=== PATIENT | female | born 1995 | race Two or more races ===

== ENCOUNTER 2016-12-16 20:51 | Emergency (ER) | payer OTHER ==
[2016-12-16 20:59] VITALS: RESP 16; TEMP 97.9
--- NOTE | 2016-12-16 22:00 | EDPHY ---
H & P Stated Complaint: pt c/o itchy rash on face x 5 days, area on face worse/more painful x 2 day HPI/ROS: HPI CHIEF COMPLAINT: Right-sided facial cellulitis HISTORY OF PRESENT ILLNESS: This patient very pleasant 21-year-old female no significant medical history she presents emergency room with a lesion on the right side of her face right cheek nasal bridge, this tender red and swollen. She did see her forensics team director today. Was told to hold off on antibiotics. She can emergency room this evening because it got worse more painful. No fever. No other lesions. Skin lesion appears to be there for 48 hours. Past Medical History: No significant medical history Past Surgical History: Significant surgical history Social History: denies daily use of drugs alcohol tobacco products, [employer] [facility] [place], [place] student Family History: contributory ROS REVIEW OF SYSTEMS: A comprehensive 10 point review of systems is otherwise negative aside from elements mentioned in the history of present illness. Exam Constitutional triage nursing summary reviewed, vital signs reviewed, awake/ alert. Eyes normal conjunctivae and sclera, EOMI, PERRLA. HENT right face: nasal bridge with maxillary fold area of cellulitis 2 x 3 cm , no significant induration no fluctuance, no abscess, normal inspection, atraumatic, moist mucus membranes, no epistaxis, neck supple/ no meningismus, no raccoon eyes. Respiratory clear to auscultation bilaterally, normal breath sounds, no respiratory distress, no wheezing. Cardiovascular rate normal, regular rhythm, no murmur, no edema, distal pulses normal. Gastrointestinal soft, non-tender, no rebound, no guarding, normal bowel sounds, no distension, no pulsatile mass. Genitourinary no CVA tenderness. Musculoskeletal no midline vertebral tenderness, full range of motion, no calf swelling, no tenderness of extremities, no meningismus, good pulses, neurovascularly intact. Skin pink, warm, & dry, no rash, skin atraumatic. Neurologic awake, alert and oriented x 3, AAOx3, moves all 4 extremities equally, motor intact, sensory intact, CN II-XII intact, normal cerebellar, normal vision, normal speech. Psychiatric normal mood/affect. Heme/Lymph/Immune no lymphadenopathy. Differential Diagnosis: Includes but is not limited to in a particular order, facial cellulitis, MRSA, strep, staph, impetigo Medical Decision Making: plan for this patient Keflex p.o., warm compresses 3 to 4 times a day, Bactroban cream. Follow up with her primary care doctor return emergency room if worsening symptoms. Source: Patient - Personal History Tetanus Vaccine Date: < 10 years - Medical/Surgical History Hx Asthma: No Hx Chronic Respiratory Disease: No Hx Diabetes: No Hx Cardiac Disease: No Hx Renal Disease: No Hx Cirrhosis: No Hx Alcoholism: No Hx HIV/AIDS: No Hx Splenectomy or Spleen Trauma: No Other PMH: none - Social History Smoking Status: Never smoked Constitutional: Initial Vital Signs Temperature (C) 36.6 C 12/16/16 20:55 Heart Rate 87 12/16/16 20:55 Respiratory Rate 16 12/16/16 20:55 Blood Pressure 121/69 H 12/16/16 20:55 O2 Sat (%) 94 12/16/16 20:55 O2 Delivery Mode Room Air Allergies/Adverse Reactions: No Known Allergies Allergy (Verified 12/16/16 20:59) Home Medications: Medication Instructions Recorded Cephalexin [Keflex (*)] 500 mg PO Q6H #28 cap 12/16/16 Mupirocin 2% [Bactroban 2%] 30 gm TP BID #1 oint 12/16/16 Departure - Departure Disposition: Home, Routine, Self-Care Clinical Impression: Facial cellulitis Condition: Good Instructions: Cellulitis (ED) Additional Instructions: 1. Use warm compresses to her face 3-4 times per day. 2. Take your antibiotics as prescribed.. 3. Return emergency room if any worsening symptoms questions or concerns. Referrals: NONE *PRIMARY CARE P,. [Primary Care Provider] - As per Instructions Prescriptions: Cephalexin [Keflex (*)] 500 mg PO Q6H #28 cap Mupirocin 2% [Bactroban 2%] 30 gm TP BID #1 oint
[2016-12-16] MEDS ORDERED: CEPHALEXIN 500MG PREPACK#4 BTL TAKEHOME ONE (22:02)
[2016-12-16] MEDS ORDERED: CEPHALEXIN 500 MG CAP PO ONE (22:02)
[2016-12-16 22:15] VITALS: BP 120/63; PULSE 74; O2SAT 97
== END 2016-12-16 22:15 | disposition home or self-care (01) ==
DX: L03.211 Cellulitis of face (principal)

== ENCOUNTER 2016-12-27 22:37 | Emergency (ER) | payer OTHER ==
[2016-12-27 22:43] VITALS: BP 107/73; PULSE 112; RESP 16; TEMP 98.4; O2SAT 94
--- NOTE | 2016-12-27 23:15 | EDPHY ---
H & P Smoking Status: Never smoked Time Seen by Provider: 12/27/16 22:43 HPI/ROS: CHIEF COMPLAINT: Rash HISTORY OF PRESENT ILLNESS: 21-year-old female presents to the emergency department with red raised rash that she noticed to the just today. The patient had a right facial infection and saw a renal dietitian who started her on Bactrim. She has been taking this as prescribed today is the 9th day. Patient developed red raised rash is concerned about possible infection. No pain. Very little itching. No other known contact with anything. ROS: No chest pain or difficulty breathing. No abdominal pain. No fevers or chills. (Brooklyn Feliz) Past Medical/Surgical History: Facial infection recently treated with antibiotics (Brooklyn Feliz) Social History: [employer] student (Brooklyn Feliz) Physical Exam: On examination the patient has diffuse erythematous macular papular rash specially to the right upper extremity, legs and abdomen. No vesicles. It does dagoberto to the touch. Lungs are clear to auscultation with no wheezing, rhonchi or rales. Heart regular rate rhythm without murmur. (Brooklyn Feliz) Constitutional: Initial Vital Signs Temperature (C) 36.9 C 12/27/16 22:40 Heart Rate 112 H 12/27/16 22:40 Respiratory Rate 16 12/27/16 22:40 Blood Pressure 107/73 12/27/16 22:40 O2 Sat (%) 94 12/27/16 22:40 O2 Delivery Mode Room Air Allergies/Adverse Reactions: No Known Allergies Allergy (Verified 12/16/16 20:59) Home Medications: Medication Instructions Recorded Sulfamethoxazole/Trimethoprim 12/27/16 MDM/Departure - [facility] ED Course/Re-evaluation: 21-year-old female presents with erythematous red raised rash. The patient has been taking Bactrim for the last 9 days. I did explain to the patient that this medication is likely what is causing her rash. I also talked with the patient about possible Bactrim causing photosensitivity. I encouraged her to stop taking the Bactrim since she is almost done with this medication any way. I do not see any indication for further antibiotics. I encouraged close follow- up with renal dietitian as well as primary care provider. She was given referral. (Brooklyn Feliz) PHYSICIAN DOCUMENTATION: The patient was evaluated and managed by the Physician Metal Spray Operator. My co- signature indicates that I have reviewed this chart and I agree with the findings and plan of care as documented. I am the secondary supervising physician. (Bina Samuel) Differential Diagnosis: Including but not limited to medication reaction, anaphylaxis, allergic reaction , cellulitis (Brooklyn Feliz) - Depart Disposition: Home, Routine, Self-Care Clinical Impression: Rash, Probable medication reaction Condition: Good Instructions: Acute Rash (ED), Antibiotic Medication Allergy (ED) Additional Instructions: Stop antibiotic (SMZ/TMP). You may use Benadryl as directed for itching, caution drowsiness. Referrals: Jhonatan Zamora MD [[facility] Primary Care Provider] - 2-3 days, call for appt. ( Primary care provider consumer science teacher)
== END 2016-12-27 23:28 | disposition home or self-care (01) ==
DX: R21 Rash and other nonspecific skin eruption (principal)

== ENCOUNTER 2016-12-28 14:20 | Emergency (ER) | payer OTHER ==
[2016-12-28 14:35] VITALS: BP 121/88; PULSE 101; RESP 16; TEMP 98.1; O2SAT 95
--- NOTE | 2016-12-28 14:41 | EDPHY ---
H & P Stated Complaint: generlized body rash(?bactrim)since yesterday--seen here for same 12/27 Time Seen by Provider: 12/28/16 14:41 - Personal History LMP (Females 10-55): 22-28 Days Ago Current Tetanus/Diphtheria Vaccine: Unsure Current Tetanus Diphtheria and Acellular Pertussis (TDAP): Unsure Tetanus Vaccine Date: < 10 years - Medical/Surgical History Hx Asthma: No Hx Chronic Respiratory Disease: No Hx Diabetes: No Hx Cardiac Disease: No Hx Renal Disease: No Hx Cirrhosis: No Hx Alcoholism: No Hx HIV/AIDS: No Hx Splenectomy or Spleen Trauma: No Other PMH: PSHx: denies. PMHx: denies - Social History Smoking Status: Never smoked Constitutional: Initial Vital Signs Temperature (C) 36.7 C 12/28/16 14:32 Heart Rate 101 H 12/28/16 14:32 Respiratory Rate 16 12/28/16 14:32 Blood Pressure 121/88 H 12/28/16 14:32 O2 Sat (%) 95 12/28/16 14:32 O2 Delivery Mode Room Air Allergies/Adverse Reactions: No Known Allergies Allergy (Verified 12/16/16 20:59) Home Medications: Medication Instructions Recorded Sulfamethoxazole/Trimethoprim 12/27/16 Famotidine [Pepcid 20 MG (OTC)] 20 mg PO DAILY #10 tab 12/28/16 predniSONE 40 mg PO DAILY #10 tab 12/28/16 Medical Decision Making ED Course/Re-evaluation: CHIEF COMPLAINT: Pruritic rash. HISTORY OF PRESENT ILLNESS: The patient is a 21-year-old female who presents with generalized pruritic rash that began after she started taking Bactrim. She has been taking Benadryl to treat the rash. She denies difficulty breathing, throat swelling, shortness of breath, or other complaints. REVIEW OF SYSTEMS: A 10 point review of systems was performed and is negative with the exception of the elements mentioned in the history of present illness. PHYSICAL EXAM: HR, BP, O2 Sat, RR. Temp noted General Appearance: Alert, well hydrated, appropriate, and non-toxic appearing. Head: Atraumatic without scalp tenderness or obvious injury Eyes: Pupils equal, round, reactive to light and accommodation, EOMI, no trauma , no injection. Ears: Clear bilaterally, no perforation, normal landmarks Nose: Atraumatic, no rhinorrhea, clear. Throat: There is no erythema or exudates, no lesions, normal tonsils, mucus membranes moist. Neck: Supple, 2+ carotid upstroke, nontender, no lymphadenopathy. Respiratory: No retractions, no distress, no wheezes, and no accessory muscle use. Lungs are clear to auscultation bilaterally. Cardiovascular: Regular rate and rhythm, no murmurs, rubs, or gallops. Bilateral carotid, radial, dorsalis pedis, and posterior tibial pulses intact. Good capillary refill all extremities. Gastrointestinal: Abdomen is soft, nontender, non-distended, no masses, no rebound, no guarding, no peritoneal signs. Musculoskeletal: Normal active ROM of all extremities, atraumatic. Neurological: Alert, appropriate, and interactive. The patient has normal DTRs and non-focal cranial nerves, motor, sensory, and cerebellar exam. Skin: Good turgor, no nodules on palpation. Generalized rash. Past medical history: Denies. Past surgical history: Denies. Family history: N/A. Social history: [employer] Student. DIFFERENTIAL DIAGNOSIS: The differential diagnosis included but was not limited to angioedema, anaphylaxis, anaphylactoid reaction, urticarial reaction, and other infectious causes for skin rash. MEDICAL DECISION MAKIN-year-old female presents with generalized pruritic rash that began after she started taking Bactrim. On exam she has no angioedema and no other allergic reaction complications. It is clear she is allergic to Sulfa products. I have instructed her to discontinue use of these. 40mg PO Pepcid and 60mg PO Prednisone administered. She will be provided prescriptions for both of these. She is comfortable with this plan. Departure - Departure Disposition: Home, Routine, Self-Care Clinical Impression: Allergy to sulfa drugs Allergic reaction Qualifiers: Encounter type: initial encounter Qualified Code(s): T78.40XA - Allergy, unspecified, initial encounter Condition: Good Instructions: Antibiotic Medication Allergy (ED), General Allergic Reaction (ED ) Additional Instructions: You are allergic to Sulfa products. Do not take Bactrim or any other Sulfa medications. Take Pepcid and Prednisone as prescribed. Return for any serious worsening of condition. Referrals: JULIETTE Dickinson,. [Clinic] - As per Instructions Prescriptions: Famotidine [Pepcid 20 MG (OTC)] 20 mg PO DAILY #10 tab predniSONE 40 mg PO DAILY #10 tab Report Scribed for: Ignacio Gupta Report Scribed by: Jung Tai Date of Report: 12/28/16 Time of Report: 14:47
[2016-12-28] MEDS ORDERED: predniSONE 20 MG TAB PO ONE (14:46)
[2016-12-28] MEDS ORDERED: FAMOTIDINE 20 MG TAB PO ONE (14:46)
== END 2016-12-28 15:01 | disposition home or self-care (01) ==
DX: R21 Rash and other nonspecific skin eruption (principal); T37.0X5A Adverse effect of sulfonamides, initial encounter

== ENCOUNTER 2017-06-12 16:11 | Emergency (ER) | payer OTHER ==
--- NOTE | 2017-06-12 17:14 | EDPHY ---
General Narrative: CHIEF COMPLAINT: Here for laboratory test due to Accutane use HISTORY OF PRESENT ILLNESS: Patient presents with request for laboratory studies due to Accutane use. She has been using Accutane for approximately 1 month. This was prescribed back in [facility]. She has now traveled here to be a student at [employer]. the physician in [facility] is requesting a CBC, serum creatinine, lipid profile, liver function panel. The patient has no complaints of any kind and simply wants these laboratory test performed. She says that her physician incomplete will follow up on the laboratory test and a abnormalities that should arise. She does not want any medical care otherwise. No other associated complaints or modifying factors. REVIEW OF SYSTEMS: Ten systems reviewed and are negative unless otherwise noted in the HPI PCP: In [facility] SPECIALISTS: None PAST MEDICAL HISTORY: Acne PAST SURGICAL HISTORY: None SOCIAL HISTORY: Nonsmoker. No alcohol. Currently a student at [employer] FAMILY HISTORY: Noncontributory EXAMINATION General Appearance: Alert, no distress Head: normocephalic, atraumatic Eyes: Pupils equal and round, no conjunctival pallor or injection ENT, Mouth: Mucous membranes moist. Airway patent Neck: Normal inspection, supple, non-tender Respiratory: No retractions or distress Cardiovascular: Regular. Neurological: A&O, nonfocal, normal gait Skin: Warm and dry, no rash. Mild facial acne MDM: 4:45 p.m. Patient is here taking Accutane and requesting laboratory studies that her physician back in [facility] would like. They are requesting CBC, chemistry, lipid panel liver function test. She has no complaints of any kind otherwise. She would like to check these for further continuation of her medication. Her physician incomplete will manage these laboratory test results and her Accutane. Laboratory studies have been ordered and we will provide the results were. - History Smoking Status: Never smoked - Objective Vital Signs: Initial Vital Signs Temperature (C) 97.3 F 06/12/17 16:26 Heart Rate 79 06/12/17 16:26 Respiratory Rate 18 06/12/17 16:26 Blood Pressure 122/74 H 06/12/17 16:26 O2 Sat (%) 95 06/12/17 16:26 O2 Delivery Mode Room Air Allergies/Adverse Reactions: sulfamethoxazole [From Bactrim] Allergy (Verified 06/12/17 16:25) trimethoprim [From Bactrim] Allergy (Verified 06/12/17 16:25) Home Medications: Medication Instructions Recorded ACCUTANE 06/12/17 Crestor 06/12/17 Crestor 06/12/17 Departure - Departure Disposition: Home, Routine, Self-Care Clinical Impression: Encounter for laboratory test Condition: Good Additional Instructions: 1. follow up on the laboratory results with your primary care physician Referrals: NONE *PRIMARY CARE P,. [Primary Care Provider] - As per Instructions [facility]UI[facility]TT[facility]ARCIA [facility],. [Clinic] - As per Instructions Santos Myrick MD [Medical Doctor] - As per Instructions
[2017-06-12 17:30] LABS: ALANINE AMINOTRANSFERASE 56 IU/L (9-52); ALBUMIN 4.5 g/dL (3.5-5.0); ALKALINE PHOSPHATASE 66 IU/L (38-126); ANION GAP 12 mEq/L (8-16); ASPARTATE AMINOTRANSFERASE 51 IU/L (14-46); BILIRUBIN,TOTAL 0.8 mg/dL (0.1-1.4); BILIRUBIN-CONJUGATED 0.4 mg/dL (0.0-0.5); BILIRUBIN-UNCONJUGATED 0.4 mg/dL (0.0-1.1); CALCIUM 9.6 mg/dL (8.5-10.4); CARBON DIOXIDE 23 mEq/l (22-31); CHLORIDE 101 mEq/L (97-110); CHOLESTEROL 138 mg/dL (140-200); CREATININE 0.8 mg/dL (0.6-1.0); GLOMERULAR FILTRATION RATE > 60; GLUCOSE 95 mg/dL (70-100); HIGH DENSITY LIPOPROTEIN 60 mg/dL (40-75); LDL/HDL RATIO 1.02 RATIO (1.00-3.22); LOW DENSITY LIPOPROTEIN 61 mg/dL (60-100); NON-HIGH DENSITY LIPOPROTEIN 78 mg/dL (90-129); POTASSIUM 3.6 mEq/L (3.5-5.2); SODIUM 136 mEq/L (134-144); TOTAL PROTEIN 7.8 g/dL (6.3-8.2); TRIGLYCERIDE 87 mg/dL (35-135); VERY LOW DENSITY LIPOPROTEINS 17 mg/dL (8-25)
[2017-06-12 17:34] LABS: % IMMATURE GRANULYOCYTES 0.6 % (0.0-1.1); ABSOLUTE IMMATURE GRANULOCYTES 0.07 10^3/uL (0.00-0.10); ADD DIFF? NO; ADD MORPH? NO; ADD SCAN? NO; ATYPICAL LYMPHOCYTE FLAG 0 (0-99); FRAGMENT RBC FLAG 0 (0-99); HEMATOCRIT 42.7 % (38.0-47.0); HEMOGLOBIN 14.8 g/dL (12.6-16.3); LEFT SHIFT FLG 0 (0-99); LIPEMIA HEMOLYSIS FLAG 90 (0-99); MEAN CELL HEMOGLOBIN 30.1 pg (27.9-34.1); MEAN CELL HEMOGLOBIN CONCENTR. 34.7 g/dL (32.4-36.7); MEAN PLATELET VOLUME 9.9 fL (8.7-11.7); PLATELET CLUMPS FLAG 0 (0-99); PLATELET COUNT 209 10^3/uL (150-400); RED BLOOD CELL COUNT 4.91 10^6/uL (4.18-5.33); RED CELL DISTRIBUTION WIDTH 12.5 % (11.5-15.2)
[2017-06-12 17:42] VITALS: BP 121/78; PULSE 67; RESP 16; TEMP 98.4; O2SAT 97
== END 2017-06-12 17:43 | disposition home or self-care (01) ==
DX: Z00.00 Encounter for general adult medical examination without abnormal findings (principal)

== ENCOUNTER 2017-07-02 14:22 | Emergency (ER) | payer OTHER ==
[2017-07-02 14:28] VITALS: TEMP 98.4
--- NOTE | 2017-07-02 15:13 | EDPHY ---
H & P Stated Complaint: PT ON ACUTANE/LIVER LABS ELEVATED 10 DAYS AGO/NEEDS RECHECKED/ IS IN [facility] Time Seen by Provider: 07/02/17 15:02 - Personal History LMP (Females 10-55): 8-14 Days Ago Current Tetanus/Diphtheria Vaccine: Yes Tetanus Vaccine Date: < 10 years - Medical/Surgical History Hx Asthma: No Hx Chronic Respiratory Disease: No Hx Diabetes: No Hx Cardiac Disease: No Hx Renal Disease: No Hx Cirrhosis: No Hx Alcoholism: No Hx HIV/AIDS: No Hx Splenectomy or Spleen Trauma: No Other PMH: PSHx: denies. PMHx: denies - Social History Smoking Status: Never smoked Constitutional: Initial Vital Signs Temperature (C) 36.9 C 07/02/17 14:26 Heart Rate 83 07/02/17 14:26 Respiratory Rate 18 07/02/17 14:26 Blood Pressure 112/76 07/02/17 14:26 O2 Sat (%) 94 07/02/17 14:26 O2 Delivery Mode Room Air Allergies/Adverse Reactions: sulfamethoxazole [From Bactrim] Allergy (Verified 07/02/17 14:25) trimethoprim [From Bactrim] Allergy (Verified 07/02/17 14:25) Home Medications: Medication Instructions Recorded ACCUTANE 06/12/17 Crestor 06/12/17 Crestor 06/12/17 Medical Decision Making ED Course/Re-evaluation: CHIEF COMPLAINT: Elevated liver enzymes HISTORY OF PRESENT ILLNESS: 21-year-old healthy female from [facility]. She was taking both Crestor and Accutane. About 2 weeks ago before leaving to wait she had elevated liver enzymes. She does not have those labs with her. Her doctor said she stopped taking both meds and have her liver enzymes rechecked. She is here for that today. She has no complaints whatsoever. She had no issues with bleeding she has had no abdominal pain she has had no nausea vomiting no fevers or chills and she has felt fine. REVIEW OF SYSTEMS: A 10 point review of systems was performed and is negative with the exception of the elements mentioned in the history of present illness. PHYSICAL EXAM: HR, BP, O2 Sat, RR. Temp noted General Appearance: Alert, well hydrated, appropriate, and non-toxic appearing. Head: Atraumatic without scalp tenderness or obvious injury Respiratory: No retractions, no distress, no wheezes, and no accessory muscle use. Lungs are clear to auscultation bilaterally. Cardiovascular: Regular rate and rhythm, no murmurs, rubs, or gallops. Bilateral carotid, radial, dorsalis pedis, and posterior tibial pulses intact. Good capillary refill all extremities. Gastrointestinal: Abdomen is soft, nontender, non-distended, no masses, no rebound, no guarding, no peritoneal signs. Musculoskeletal: Normal active ROM of all extremities, atraumatic. Neurological: Alert, appropriate, and interactive. The patient has normal DTRs and non-focal cranial nerves, motor, sensory, and cerebellar exam. Skin: No rashes, good turgor, no nodules on palpation. Past medical history: Borderline hypercholesterolemia and acne Past surgical history: Noncontributory Family history: Noncontributory Social history: Single, student, does not abuse tobacco drugs or alcohol DIFFERENTIAL DIAGNOSIS: For elevated liver enzymes includes but is not limited to: Statin drug, Accutane, other ingested drugs or foods, illness MEDICAL DECISION MAKING: This patient has no symptoms whatsoever CBC, a chemistry panel with liver function tests and total CPK are all pending. This patient does have a slightly elevated white blood cell count but she does not really have any symptoms whatsoever. Other than that, she has normal liver and kidney function normal electrolytes. She will follow up with instructions from her doctor. At this point Accutane probably does not make sense. I do not have a good sense of how bad a lipid disorders patient has so she can discuss additional lipid control modalities with her primary care physician. - Data Points Laboratory Results: Laboratory Results 07/02/17 15:10 07/02/17 15:10 07/02/17 07/02/17 07/02/17 15:10 15:10 15:10 WBC 14.88 10^3/uL H 10^3/uL (3.80-9.50) RBC 5.12 10^6/uL 10^6/uL (4.18-5.33) Hgb 15.4 g/dL g/dL (12.6-16.3) Hct 44.5 % % (38.0-47.0) MCV 86.9 fL fL (81.5-99.8) MCH 30.1 pg pg (27.9-34.1) MCHC 34.6 g/dL g/dL (32.4-36.7) RDW 12.5 % % (11.5-15.2) Plt Count 265 10^3/uL 10^3/uL (150-400) MPV 9.6 fL fL (8.7-11.7) Neut % (Auto) 70.6 % % (39.3-74.2) Lymph % (Auto) 17.7 % % (15.0-45.0) Oliver % (Auto) 8.1 % % (4.5-13.0) Eos % (Auto) 2.3 % % (0.6-7.6) Baso % (Auto) 0.7 % % (0.3-1.7) Nucleat RBC Rel Count 0.0 % % (0.0-0.2) Absolute Neuts (auto) 10.51 10^3/uL H 10^3/uL (1.70-6.50) Absolute Lymphs (auto) 2.64 10^3/uL 10^3/uL (1.00-3.00) Absolute Monos (auto) 1.20 10^3/uL H 10^3/uL (0.30-0.80) Absolute Eos (auto) 0.34 10^3/uL 10^3/uL (0.03-0.40) Absolute Basos (auto) 0.10 10^3/uL 10^3/uL (0.02-0.10) Absolute Nucleated RBC 0.00 10^3/uL 10^3/uL (0-0.01) Immature Gran % 0.6 % % (0.0-1.1) Immature Gran # 0.09 10^3/uL 10^3/uL (0.00-0.10) PT 14.0 SEC SEC (12.0-15.0) INR 1.09 (0.83-1.16) APTT 30.0 SEC SEC (23.0-38.0) Sodium 139 mEq/L mEq/L (134-144) Potassium 4.2 mEq/L mEq/L (3.5-5.2) Chloride 104 mEq/L mEq/L (97-110) Carbon Dioxide 22 mEq/l mEq/l (22-31) Anion Gap 13 mEq/L mEq/L (8-16) BUN 14 mg/dL mg/dL (7-23) Creatinine 0.7 mg/dL mg/dL (0.6-1.0) Estimated GFR > 60 Glucose 90 mg/dL mg/dL (70-100) Calcium 9.5 mg/dL mg/dL (8.5-10.4) Total Bilirubin 0.8 mg/dL mg/dL (0.1-1.4) Conjugated Bilirubin 0.2 mg/dL mg/dL (0.0-0.5) Unconjugated Bilirubin 0.6 mg/dL mg/dL (0.0-1.1) AST 23 IU/L IU/L (14-46) ALT 29 IU/L IU/L (9-52) Alkaline Phosphatase 70 IU/L IU/L (38-126) Creatine Kinase 88 IU/L IU/L (0-156) Total Protein 7.3 g/dL g/dL (6.3-8.2) Albumin 4.3 g/dL g/dL (3.5-5.0) Lipase 28 IU/L IU/L (23-300) Departure - Departure Disposition: Home, Routine, Self-Care Clinical Impression: Elevated liver enzymes Condition: Good Instructions: Heart Healthy Diet (ED) Referrals: NONE *PRIMARY CARE P,. [Primary Care Provider] - As per Instructions
[2017-07-02 15:24] LABS: % IMMATURE GRANULYOCYTES 0.6 % (0.0-1.1); ABSOLUTE IMMATURE GRANULOCYTES 0.09 10^3/uL (0.00-0.10); ADD DIFF? NO; ADD MORPH? NO; ADD SCAN? NO; ATYPICAL LYMPHOCYTE FLAG 0 (0-99); FRAGMENT RBC FLAG 0 (0-99); HEMATOCRIT 44.5 % (38.0-47.0); HEMOGLOBIN 15.4 g/dL (12.6-16.3); LEFT SHIFT FLG 0 (0-99); LIPEMIA HEMOLYSIS FLAG 90 (0-99); MEAN CELL HEMOGLOBIN 30.1 pg (27.9-34.1); MEAN CELL HEMOGLOBIN CONCENTR. 34.6 g/dL (32.4-36.7); MEAN CELL VOLUME 86.9 fL (81.5-99.8); MEAN PLATELET VOLUME 9.6 fL (8.7-11.7); PLATELET CLUMPS FLAG 0 (0-99); PLATELET COUNT 265 10^3/uL (150-400); RED BLOOD CELL COUNT 5.12 10^6/uL (4.18-5.33); RED CELL DISTRIBUTION WIDTH 12.5 % (11.5-15.2)
[2017-07-02 15:37] LABS: ALANINE AMINOTRANSFERASE 29 IU/L (9-52); ALBUMIN 4.3 g/dL (3.5-5.0); ALKALINE PHOSPHATASE 70 IU/L (38-126); ANION GAP 13 mEq/L (8-16); ASPARTATE AMINOTRANSFERASE 23 IU/L (14-46); BILIRUBIN,TOTAL 0.8 mg/dL (0.1-1.4); BILIRUBIN-CONJUGATED 0.2 mg/dL (0.0-0.5); BILIRUBIN-UNCONJUGATED 0.6 mg/dL (0.0-1.1); CALCIUM 9.5 mg/dL (8.5-10.4); CARBON DIOXIDE 22 mEq/l (22-31); CHLORIDE 104 mEq/L (97-110); CREATININE 0.7 mg/dL (0.6-1.0); GLOMERULAR FILTRATION RATE > 60; GLUCOSE 90 mg/dL (70-100); POTASSIUM 4.2 mEq/L (3.5-5.2); SODIUM 139 mEq/L (134-144); TOTAL PROTEIN 7.3 g/dL (6.3-8.2)
[2017-07-02 15:40] LABS: INR 1.09 (0.83-1.16)
[2017-07-02 15:59] VITALS: BP 104/55; PULSE 85; RESP 16; O2SAT 95
[2017-07-02 16:14] LABS: CHOLESTEROL 183 mg/dL (140-200); CHOLESTEROL/HDL RATIO 2.95 RATIO (1.00-4.44); HIGH DENSITY LIPOPROTEIN 62 mg/dL (40-75); LDL/HDL RATIO 1.53 RATIO (1.00-3.22); LOW DENSITY LIPOPROTEIN 95 mg/dL (60-100); NON-HIGH DENSITY LIPOPROTEIN 121 mg/dL (90-129); TRIGLYCERIDE 134 mg/dL (35-135); VERY LOW DENSITY LIPOPROTEINS 26 mg/dL (8-25)
== END 2017-07-02 16:04 | disposition home or self-care (01) ==
DX: R74.8 Abnormal levels of other serum enzymes (principal)

== ENCOUNTER 2017-08-12 15:28 | Emergency (ER) | payer OTHER ==
[2017-08-12 15:34] VITALS: RESP 16
--- NOTE | 2017-08-12 17:08 | EDPHY ---
H & P Stated Complaint: monthly blood draw for acutane Time Seen by Provider: 08/12/17 17:04 HPI/ROS: HPI: This is a 22-year-old female presents with Chief Complaint: Request for lab draw Location: Body Quality:Request for lab draw Duration: 1 month Signs and Symptoms: No abdominal pain, no nausea, no vomiting, no dizziness, no altered mental status, no blood in stool, no hematemesis, no vaginal bleeding , no vaginal discharge Timing: Monthly Severity: Mild Context: Patient is a local [employer] student that is originally from [facility]. She has been at the [employer] approximately 4 years. Her primary care providers in [facility]. She was started on Accutane approximately around May. She has been to this emergency room once in June and in July requesting laboratory draw to monitor her "levels." She currently has no complaints. Reports that she feels healthy. She has made no attempt to establish care with primary care provider despite our attempts to arrange 1 for her. She denies drinking alcohol or being sexually active. LMP 1-2 weeks ago. Modifying Factors: None Comment: ROS: see HPI Constitutional: No fever, no chills, no weight loss Eyes: No blurred vision Respiratory: No shortness of breath, no cough Cardiovascular: No chest pain Gastrointestinal: No nausea, no vomiting, no diarrhea Genitourinary: No dysuria Extremities: No myalgias Neurologic: No weakness, no numbness Skin: No rashes Hematologic: No bruising, no bleeding MEDICAL/SURGICAL/SOCIAL HISTORY: Medical history: Generally healthy. Does not take any regular medications. Surgical history: Denies Social history: Student at [employer] CONSTITUTIONAL: Extremely well-appearing but irritated young adult female, awake and alert, no obvious distress HEENT: Atraumatic and normocephalic, PERRL, EOMI. Nonicteric. Tympanic membranes clear. Oropharynx clear, no exudate and moist pink mucosa. Airway patent. No lymphadenopathy. No meningismus. Cardiovascular: Normal S1/S2, regular rate, regular rhythm, without murmur rub or gallop. PULMONARY/CHEST: Symmetrical and nontender. Clear to auscultation bilaterally. Good air movement. No accessory muscle usage. ABDOMEN: Soft, nondistended, nontender, no rebound, no guarding, no peritoneal signs, no masses or organomegaly. No CVAT. EXTREMITIES: 2/2 pulses, strength 5/5, no deformities, no clubbing, no cyanosis or edema. NEUROLOGICAL: no focal neuro deficits. GCS 15. SKIN: Warm and dry, not jaundiced. no erythema. no rash. Good capillary refill. Source: Patient Exam Limitations: No limitations - Personal History LMP (Females 10-55): 8-14 Days Ago Current Tetanus/Diphtheria Vaccine: Yes Tetanus Vaccine Date: < 10 years - Medical/Surgical History Hx Asthma: No Hx Chronic Respiratory Disease: No Hx Diabetes: No Hx Cardiac Disease: No Hx Renal Disease: No Hx Cirrhosis: No Hx Alcoholism: No Hx HIV/AIDS: No Hx Splenectomy or Spleen Trauma: No Other PMH: PSHx: denies. PMHx: denies - Social History Smoking Status: Never smoked Constitutional: Initial Vital Signs Temperature (C) 36.5 C 08/12/17 15:32 Heart Rate 73 08/12/17 15:32 Respiratory Rate 16 08/12/17 15:32 Blood Pressure 122/63 H 08/12/17 15:32 O2 Sat (%) 97 08/12/17 15:32 O2 Delivery Mode Room Air Allergies/Adverse Reactions: sulfamethoxazole [From Bactrim] Allergy (Verified 08/12/17 15:31) trimethoprim [From Bactrim] Allergy (Verified 08/12/17 15:31) Home Medications: Medication Instructions Recorded ACCUTANE 06/12/17 Medical Decision Making ED Course/Re-evaluation: manager has been working with the patient to set up primary care here in [facility] but patient is very resistance that she reports that is not convenient for her. She is currently in the middle of her finals and will be leaving early next week to return to [facility]. She is demanding for a lab draw. Patient now reports that she is moving back to [facility] in September and it is not necessary for her to establish a primary care provider. CBC, CMP, lipase ordered Patient will call the emergency room tomorrow to obtain the results of these laboratory studies. She is currently stable and without complaints. Labs reviewed and unremarkable. Differential Diagnosis: Differential diagnosis includes abnormal liver function test. - Data Points Laboratory Results: Laboratory Results 08/12/17 17:45 08/12/17 17:45 08/12/17 08/12/17 08/12/17 17:45 17:45 17:45 WBC 8.09 10^3/uL 10^3/uL (3.80-9.50) RBC 5.37 10^6/uL H 10^6/uL (4.18-5.33) Hgb 16.0 g/dL g/dL (12.6-16.3) Hct 46.5 % % (38.0-47.0) MCV 86.6 fL fL (81.5-99.8) MCH 29.8 pg pg (27.9-34.1) MCHC 34.4 g/dL g/dL (32.4-36.7) RDW 12.3 % % (11.5-15.2) Plt Count 287 10^3/uL 10^3/uL (150-400) MPV 10.2 fL fL (8.7-11.7) Neut % (Auto) 52.8 % % (39.3-74.2) Lymph % (Auto) 37.7 % % (15.0-45.0) [place] % (Auto) 6.4 % % (4.5-13.0) Eos % (Auto) 1.2 % % (0.6-7.6) Baso % (Auto) 1.4 % % (0.3-1.7) Nucleat RBC Rel Count 0.0 % % (0.0-0.2) Absolute Neuts (auto) 4.27 10^3/uL 10^3/uL (1.70-6.50) Absolute Lymphs (auto) 3.05 10^3/uL H 10^3/uL (1.00-3.00) Absolute Monos (auto) 0.52 10^3/uL 10^3/uL (0.30-0.80) Absolute Eos (auto) 0.10 10^3/uL 10^3/uL (0.03-0.40) Absolute Basos (auto) 0.11 10^3/uL H 10^3/uL (0.02-0.10) Absolute Nucleated RBC 0.00 10^3/uL 10^3/uL (0-0.01) Immature Gran % 0.5 % % (0.0-1.1) Immature Gran # 0.04 10^3/uL 10^3/uL (0.00-0.10) Sodium 143 mEq/L mEq/L (134-144) Potassium 3.7 mEq/L mEq/L (3.5-5.2) Chloride 104 mEq/L mEq/L (97-110) Carbon Dioxide 22 mEq/l mEq/l (22-31) Anion Gap 17 mEq/L H mEq/L (8-16) BUN 16 mg/dL mg/dL (7-23) Creatinine 0.8 mg/dL mg/dL (0.6-1.0) Estimated GFR > 60 Glucose 85 mg/dL mg/dL (70-100) Calcium 10.1 mg/dL mg/dL (8.5-10.4) Total Bilirubin 0.5 mg/dL mg/dL (0.1-1.4) AST 28 IU/L IU/L (14-46) ALT 38 IU/L IU/L (9-52) Alkaline Phosphatase 74 IU/L IU/L (38-126) Total Protein 8.2 g/dL g/dL (6.3-8.2) Albumin 4.8 g/dL g/dL (3.5-5.0) Lipase 44 IU/L IU/L (23-300) Beta HCG, Qual NEGATIVE Departure - Departure Disposition: Home, Routine, Self-Care Clinical Impression: Encounter for laboratory test Condition: Good Instructions: Jaundice (ED) Additional Instructions: Please abstain from drinking alcohol while taking Accutane concomitantly. If you are sexually active, please practice safe sex practices including control methods to prevent while you are taking Accutane. Referrals: SHAMEAL,UNK [Other] - As per Instructions
[2017-08-12 18:11] LABS: % IMMATURE GRANULYOCYTES 0.5 % (0.0-1.1); ABSOLUTE IMMATURE GRANULOCYTES 0.04 10^3/uL (0.00-0.10); ADD DIFF? NO; ADD MORPH? NO; ADD SCAN? NO; ATYPICAL LYMPHOCYTE FLAG 0 (0-99); FRAGMENT RBC FLAG 0 (0-99); HEMATOCRIT 46.5 % (38.0-47.0); LEFT SHIFT FLG 0 (0-99); LIPEMIA HEMOLYSIS FLAG 90 (0-99); MEAN CELL HEMOGLOBIN 29.8 pg (27.9-34.1); MEAN CELL HEMOGLOBIN CONCENTR. 34.4 g/dL (32.4-36.7); MEAN CELL VOLUME 86.6 fL (81.5-99.8); MEAN PLATELET VOLUME 10.2 fL (8.7-11.7); PLATELET CLUMPS FLAG 20 (0-99); PLATELET COUNT 287 10^3/uL (150-400); RED BLOOD CELL COUNT 5.37 10^6/uL (4.18-5.33); RED CELL DISTRIBUTION WIDTH 12.3 % (11.5-15.2)
[2017-08-12 18:21] LABS: ALANINE AMINOTRANSFERASE 38 IU/L (9-52); ALBUMIN 4.8 g/dL (3.5-5.0); ALKALINE PHOSPHATASE 74 IU/L (38-126); ANION GAP 17 mEq/L (8-16); ASPARTATE AMINOTRANSFERASE 28 IU/L (14-46); BILIRUBIN,TOTAL 0.5 mg/dL (0.1-1.4); CALCIUM 10.1 mg/dL (8.5-10.4); CARBON DIOXIDE 22 mEq/l (22-31); CHLORIDE 104 mEq/L (97-110); CREATININE 0.8 mg/dL (0.6-1.0); GLOMERULAR FILTRATION RATE > 60; GLUCOSE 85 mg/dL (70-100); POTASSIUM 3.7 mEq/L (3.5-5.2); SODIUM 143 mEq/L (134-144); TOTAL PROTEIN 8.2 g/dL (6.3-8.2)
--- NOTE | 2017-08-12 18:24 | ASDISCHSUM ---
Discharge Information Plan Status:Home with No Needs Medically Cleared to Leave: Discharge Date: CM D/C Disposition:Home, Routine, Self-Care ADT D/C Disposition:Home, Routine, Self-Care Projected Discharge Date: Transportation at D/C:Self Discharge Delay Reason: Follow-Up Date: Discharge Slot: Final Diagnosis: Placement Information Patient Contact Information Contact Name:JILL Relationship:[place] Address: Work Phone: City: [facility] Phone: State/[employer] Code: Email: Financial Information Financial Class:[facility] Primary Plan Desc:[facility]ILL[facility] Primary Plan Number:[id number] Secondary Plan Desc: Secondary Plan Number: Assessment Information LACE LACE Acuity / Level of Care Answers: No. Emergency dept visits in Answers: 4+ last 6 months Score: 4 Date Signed: 08/12/2017 05:29 PM Electronically Signed By:Jerri Berrios RN [facility] Progress Note CM Note CM Note Notes: Patient presenting to the ED for 3rd time since beginning of June for routine lab draws. Spoke with patient about why she has not been able to establish a PCP but patient was unable to provide an answer, stating "My PCP in [facility] just tells me to come to the ED once a month." Patient states she is flying out of town on Friday and "doesn't have time to go to another doctor appointment before then." Patient had been referred to Dr. Santos Myrick upon discharge on 06/12/17. Although patient is a [employer] student she is not able to be seen at [facility] because she doesn't have the school insurance plans, patient has [employer]. This CM discussed the importance of establishing a local PCP and spent a substantial amount of time with the patient and also on the phone trying to find the first available new patient appt within [facility] clinics; able to get patient an appointment on in [place] or on Friday at [place] but then patient reported she is currently in the process of moving back to [facility] "so there would be no point in getting a doctor here." ED Provider okay with drawing labs this last time. Patient informed that if she happens to remain in [place] longer than expected, it is imperative for her to get a PCP. CM available for further assistance. Date Signed: 08/12/2017 06:24 PM Electronically Signed By:Jerri Berrios RN Intervention Information
[2017-08-12 18:30] VITALS: BP 112/67; PULSE 76; TEMP 98.1; O2SAT 98
== END 2017-08-12 18:30 | disposition home or self-care (01) ==
DX: Z00.00 Encounter for general adult medical examination without abnormal findings (principal)